=== PATIENT | male | born 1955 ===

== ENCOUNTER 2023-12-25 12:26 | Inpatient (IN) ==
[2023-12-25] MEDS ORDERED: IOPAMIDOL 100 ML BOTTLE IV ONE (12:27)
[2023-12-25] MEDS: 0.9 % SODIUM CHLORIDE 250 ML IV SCH ×2 (12:48→14:38)
[2023-12-25 13:48] LABS: INR 2.1 (0.9-1.1); Prothrombin Time 24.2 sec (11.9-14.5)
[2023-12-25 13:48] LABS: Basophils # (Auto) 0.02 K/mcL (0.00-0.30); Basophils % (Auto) 0.2 % (0.0-2.0); Eosinophils # (Auto) 0.05 K/mcL (0.00-0.70); Eosinophils % (Auto) 0.5 % (0.0-7.0); Hemoglobin 7.3 g/dL (13.7-17.5); Lymphocytes # (Auto) 1.46 K/mcL (1.50-4.80); Lymphocytes % (Auto) 14.5 % (15.5-49.0); Mean Cell Volume 84.2 fL (80.0-100.0); Mean Corpuscular HGB Conc 29.2 g/dL (31.0-36.0); Mean Platelet Volume 12.4 fL (8.8-12.5); Monocytes # (Auto) 0.92 K/mcL (0.10-0.90); Monocytes % (Auto) 9.1 % (1.0-12.0); Neutrophils % (Auto) 75.5 % (38.0-78.0); Platelet Count 214 K/mcL (140-440); RBC 2.97 M/mcL (4.63-6.08); Red Cell Distribution Width 18.2 % (11.5-14.5); WBC 10.1 K/mcL (4.5-11.0)
[2023-12-25 13:50] LABS: ALT/SGPT 83 U/L (<40); AST/SGOT 28 U/L (<40); Albumin 3.6 gm/dL (3.2-5.2); Albumin/Globulin Ratio 1.2 (1.0-2.3); Alkaline Phosphatase 110 U/L (39-117); Bilirubin,Total 0.7 mg/dL (0.1-1.0); Blood Urea Nitrogen 70 mg/dL (8-23); Calcium 8.6 mg/dL (8.6-10.4); Carbon Dioxide 17 mmol/L (22-30); Chloride 105 mmol/L (96-108); Globulin 2.9 gm/dL (2.2-3.7); Glomerular Filtration Rate 24; Glucose 125 mg/dL (70-105); Potassium 4.5 mmol/L (3.3-5.1); Sodium 140 mmol/L (133-145)
[2023-12-25] MEDS: 0.9 % SODIUM CHLORIDE 1,000 ML IV ONE (14:06)
[2023-12-25] MEDS: ACETAMINOPHEN 1,000 MG/100 ML BAG IV ONE (14:49)
[2023-12-25 17:08] LABS: Appearance,Urine Slightly Cloudy (Clear); Bacteria,Urine 0 /hpf (0); Bilirubin,Urine Negative (Negative); Color,Urine Yellow; Glucose,Urine (UA) 250 mg/dL (Negative); Ketones,Urine Negative (Negative); Leukocyte Esterase,Urine Small /uL (Negative); Nitrate,Urine Negative (Negative); PH,Urine 5.5 (5.0-9.0); Protein,Urine 30 mg/dL (Negative); Specific Gravity,Urine 1.015 (1.000-1.035); Urine Blood Large ery/mcL (Negative); Urine Budding Yeast Few /hpf; Urine Hyphae Yeast Few /hpf; Urine RBC > 182 /hpf (0-1); Urine Squamous Epithelial Cell 0 /hpf (0-4); Urine WBC 34 /hpf (0-4); Urobilinogen,Urine Normal
[2023-12-25 18:45] LABS: Hematocrit 29.5 % (40.1-51.0); Hemoglobin 8.6 g/dL (13.7-17.5)
[2023-12-25] MEDS: FUROSEMIDE 100 MG/10 ML VIAL IV ONE (18:55)
[2023-12-25] MEDS: cefTRIAXone 1 GM VIAL IV ONE (19:00)
[2023-12-25] MEDS: oxyCODONE IR 5 MG TABLET PO ONE (22:20)
[2023-12-25] MEDS ORDERED: ONDANSETRON 4 MG/2 ML VIAL IV PRN (23:52)
[2023-12-26] MEDS: APIXABAN 5 MG TABLET PO SCH (01:01)
[2023-12-26] MEDS: ACETAMINOPHEN 325 MG TABLET PO PRN (01:01)
[2023-12-26] MEDS: FUROSEMIDE 20 MG/2 ML VIAL IV ONE (01:15)
[2023-12-26] MEDS: FUROSEMIDE 40 MG/4 ML VIAL IV ONE ×2 (01:17→06:31)
[2023-12-26] MEDS: ACETAMINOPHEN 325 MG TABLET PO ONE (01:18)
[2023-12-26] MEDS: APIXABAN 5 MG TABLET PO ONE (01:18)
[2023-12-26] MEDS: PANTOPRAZOLE 40 MG VIAL IV ONE ×2 (06:10→06:13)
[2023-12-26] MEDS: 0.9 % SODIUM CHLORIDE 10 ML SYRINGE IV SCH (06:13)
[2023-12-26 06:33] LABS: Basophils # (Auto) 0.02 K/mcL (0.00-0.30); Basophils % (Auto) 0.2 % (0.0-2.0); Eosinophils # (Auto) 0.03 K/mcL (0.00-0.70); Eosinophils % (Auto) 0.3 % (0.0-7.0); Hematocrit 25.8 % (40.1-51.0); Hemoglobin 7.7 g/dL (13.7-17.5); Lymphocytes # (Auto) 1.44 K/mcL (1.50-4.80); Lymphocytes % (Auto) 15.1 % (15.5-49.0); Mean Cell Volume 85.1 fL (80.0-100.0); Mean Corpuscular HGB Conc 29.8 g/dL (31.0-36.0); Mean Platelet Volume 12.7 fL (8.8-12.5); Monocytes % (Auto) 10.5 % (1.0-12.0); Neutrophils % (Auto) 73.7 % (38.0-78.0); Platelet Count 206 K/mcL (140-440); RBC 3.03 M/mcL (4.63-6.08); Red Cell Distribution Width 18.3 % (11.5-14.5); WBC 9.5 K/mcL (4.5-11.0)
[2023-12-26 07:01] LABS: ALT/SGPT 73 U/L (<40); AST/SGOT 31 U/L (<40); Albumin 3.4 gm/dL (3.2-5.2); Albumin/Globulin Ratio 1.3 (1.0-2.3); Alkaline Phosphatase 101 U/L (39-117); Bilirubin,Total 1.3 mg/dL (0.1-1.0); Blood Urea Nitrogen 71 mg/dL (8-23); Carbon Dioxide 18 mmol/L (22-30); Chloride 107 mmol/L (96-108); Globulin 2.7 gm/dL (2.2-3.7); Glomerular Filtration Rate 23; Glucose 101 mg/dL (70-105); Potassium 4.4 mmol/L (3.3-5.1); Sodium 142 mmol/L (133-145)
[2023-12-26] MEDS: PANTOPRAZOLE 40 MG VIAL IV SCH (08:43)
[2023-12-26] MEDS: AMIODARONE HCL 200 MG TABLET PO SCH (08:43)
[2023-12-26] MEDS: ASPIRIN 81 MG TAB.CHEW PO SCH (08:43)
[2023-12-26] MEDS: FUROSEMIDE 100 MG/10 ML VIAL IV SCH (08:43)
[2023-12-26 12:41] LABS: Hematocrit 25.4 % (40.1-51.0); Hemoglobin 7.7 g/dL (13.7-17.5)
[2023-12-26 18:40] LABS: Hematocrit 26.8 % (40.1-51.0); Hemoglobin 7.9 g/dL (13.7-17.5)
[2023-12-26] MEDS: TAMSULOSIN 0.4 MG CAPSULE PO SCH (21:40)
[2023-12-26] MEDS: ATORVASTATIN 40 MG TABLET PO SCH (21:41)
[2023-12-27 00:58] LABS: Hematocrit 25.3 % (40.1-51.0); Hemoglobin 7.6 g/dL (13.7-17.5)
[2023-12-27] MEDS: 0.9 % SODIUM CHLORIDE 250 ML IV SCH (05:23)
[2023-12-27 06:13] LABS: Basophils # (Auto) 0.03 K/mcL (0.00-0.30); Basophils % (Auto) 0.3 % (0.0-2.0); Eosinophils # (Auto) 0.15 K/mcL (0.00-0.70); Eosinophils % (Auto) 1.5 % (0.0-7.0); Hematocrit 28.6 % (40.1-51.0); Lymphocytes # (Auto) 1.18 K/mcL (1.50-4.80); Lymphocytes % (Auto) 11.6 % (15.5-49.0); Mean Cell Volume 83.9 fL (80.0-100.0); Mean Corpuscular HGB Conc 31.5 g/dL (31.0-36.0); Mean Platelet Volume 12.3 fL (8.8-12.5); Monocytes # (Auto) 1.13 K/mcL (0.10-0.90); Monocytes % (Auto) 11.1 % (1.0-12.0); Neutrophils % (Auto) 75.2 % (38.0-78.0); Platelet Count 174 K/mcL (140-440); RBC 3.41 M/mcL (4.63-6.08); Red Cell Distribution Width 18.5 % (11.5-14.5); WBC 10.2 K/mcL (4.5-11.0)
[2023-12-27 06:47] LABS: ALT/SGPT 61 U/L (<40); AST/SGOT 25 U/L (<40); Albumin 3.3 gm/dL (3.2-5.2); Albumin/Globulin Ratio 1.3 (1.0-2.3); Alkaline Phosphatase 97 U/L (39-117); Bilirubin,Total 1.4 mg/dL (0.1-1.0); Blood Urea Nitrogen 60 mg/dL (8-23); Calcium 8.5 mg/dL (8.6-10.4); Carbon Dioxide 21 mmol/L (22-30); Chloride 105 mmol/L (96-108); Globulin 2.5 gm/dL (2.2-3.7); Glomerular Filtration Rate 28; Glucose 96 mg/dL (70-105); Potassium 3.4 mmol/L (3.3-5.1); Sodium 141 mmol/L (133-145)
[2023-12-27] MEDS: DICYCLOMINE 20 MG/2 ML VIAL IM ONE ×2 (12:48→19:23)
[2023-12-27 16:29] LABS: Hematocrit 29.1 % (40.1-51.0); Hemoglobin 8.9 g/dL (13.7-17.5)
[2023-12-27] MEDS: traMADol 50 MG TABLET PO ONE ×2 (22:32→22:33)
[2023-12-28 06:52] LABS: Basophils # (Auto) 0.03 K/mcL (0.00-0.30); Basophils % (Auto) 0.3 % (0.0-2.0); Eosinophils # (Auto) 0.13 K/mcL (0.00-0.70); Eosinophils % (Auto) 1.4 % (0.0-7.0); Hematocrit 26.3 % (40.1-51.0); Hemoglobin 8.3 g/dL (13.7-17.5); Lymphocytes # (Auto) 1.18 K/mcL (1.50-4.80); Lymphocytes % (Auto) 13.1 % (15.5-49.0); Mean Cell Volume 82.4 fL (80.0-100.0); Mean Corpuscular HGB Conc 31.6 g/dL (31.0-36.0); Mean Platelet Volume 12.5 fL (8.8-12.5); Monocytes # (Auto) 0.79 K/mcL (0.10-0.90); Monocytes % (Auto) 8.8 % (1.0-12.0); Neutrophils % (Auto) 76.2 % (38.0-78.0); Platelet Count 171 K/mcL (140-440); RBC 3.19 M/mcL (4.63-6.08); Red Cell Distribution Width 18.3 % (11.5-14.5)
[2023-12-28 07:10] LABS: ALT/SGPT 50 U/L (<40); AST/SGOT 28 U/L (<40); Albumin 3.1 gm/dL (3.2-5.2); Albumin/Globulin Ratio 1.2 (1.0-2.3); Alkaline Phosphatase 92 U/L (39-117); Blood Urea Nitrogen 45 mg/dL (8-23); Calcium 8.3 mg/dL (8.6-10.4); Carbon Dioxide 23 mmol/L (22-30); Chloride 101 mmol/L (96-108); Globulin 2.5 gm/dL (2.2-3.7); Glomerular Filtration Rate 33; Glucose 88 mg/dL (70-105); Potassium 2.9 mmol/L (3.3-5.1); Sodium 137 mmol/L (133-145)
[2023-12-28] MEDS: POTASSIUM CHLORIDE 20 MEQ PACKET PO SCH (10:14)
[2023-12-28 14:06] LABS: Hematocrit 27.2 % (40.1-51.0); Hemoglobin 8.5 g/dL (13.7-17.5)
[2023-12-28] MEDS: POTASSIUM CHLORIDE 20 MEQ PACKET PO ONE (15:05)
[2023-12-28] MEDS: SENNOSIDES 1 TABLET PO PRN (15:14)
[2023-12-28] MEDS: POTASSIUM CHLORIDE 20 MEQ PACKET ONE (15:14)
[2023-12-28] MEDS: HYDROcodone/APAP 5/325MG TABLET PO ONE ×2 (15:16→20:50)
[2023-12-28] MEDS: HYDROcodone/APAP 5/325MG TABLET PO PRN (19:42)
[2023-12-29 07:02] LABS: Basophils # (Auto) 0.02 K/mcL (0.00-0.30); Basophils % (Auto) 0.3 % (0.0-2.0); Eosinophils % (Auto) 1.3 % (0.0-7.0); Hematocrit 28.1 % (40.1-51.0); Hemoglobin 8.9 g/dL (13.7-17.5); Lymphocytes # (Auto) 0.83 K/mcL (1.50-4.80); Lymphocytes % (Auto) 10.4 % (15.5-49.0); Mean Cell Volume 82.9 fL (80.0-100.0); Mean Corpuscular HGB Conc 31.7 g/dL (31.0-36.0); Mean Platelet Volume 12.1 fL (8.8-12.5); Monocytes # (Auto) 0.74 K/mcL (0.10-0.90); Monocytes % (Auto) 9.3 % (1.0-12.0); Neutrophils % (Auto) 78.4 % (38.0-78.0); Platelet Count 171 K/mcL (140-440); RBC 3.39 M/mcL (4.63-6.08); Red Cell Distribution Width 18.5 % (11.5-14.5)
[2023-12-29 07:09] LABS: ALT/SGPT 45 U/L (<40); AST/SGOT 25 U/L (<40); Albumin 3.3 gm/dL (3.2-5.2); Albumin/Globulin Ratio 1.3 (1.0-2.3); Alkaline Phosphatase 100 U/L (39-117); Blood Urea Nitrogen 33 mg/dL (8-23); Calcium 8.6 mg/dL (8.6-10.4); Carbon Dioxide 28 mmol/L (22-30); Chloride 98 mmol/L (96-108); Globulin 2.6 gm/dL (2.2-3.7); Glomerular Filtration Rate 37; Glucose 91 mg/dL (70-105); Potassium 2.9 mmol/L (3.3-5.1); Sodium 139 mmol/L (133-145)
[2023-12-29] MEDS: POTASSIUM CHLORIDE 20 MEQ TABLET PO SCH (08:05)
[2023-12-29] MEDS: POLYETHYLENE GLYCOL 3350 17 GM PACKET PO PRN (10:34)
[2023-12-29] MEDS: POTASSIUM CHLORIDE 20 MEQ TABLET PO ONE (12:51)
[2023-12-29] MEDS ORDERED: FUROSEMIDE 40 MG TABLET PO SCH (21:00)
== END 2023-12-29 13:45 | disposition short-term general hospital (02) | DRG 377 ==
LOC: ED 12:26 → MEDSUR 23:46
PROVIDERS: ADMIT Student in an Organized Health Care Education/Training Program; ATTEND Student in an Organized Health Care Education/Training Program